=== PATIENT | female | born 1965 | race American Indian/Alaskan Native ===

== ENCOUNTER 2019-08-24 11:14 | Outpatient (CLI) | payer BC | END 2019-08-24 12:45 | disposition home or self-care (01) | LOC: SONOGRAMA 11:14 → MAMO-SONO 11:15 → SONOGRAMA 12:45 | DX: R10.13 Epigastric pain (principal) ==

== ENCOUNTER 2019-08-24 12:05 | Outpatient (CLI) | payer BC | END 2019-08-24 12:10 | disposition home or self-care (01) | LOC: LAB 12:05 | DX: R10.13 Epigastric pain (principal) ==

== ENCOUNTER 2019-10-20 17:07 | Emergency (ER) | payer BC ==
[~2019-10-20] VITALS: Ht 160 cm; Wt 72.6 kg
== END 2019-10-21 05:09 | disposition home or self-care (01) ==
LOC: ER 17:07
DX: J45.998 Other asthma (principal)